=== PATIENT | male | born 1965 | race Caucasian/White ===

== ENCOUNTER → 2017-01-29 | Outpatient (CLI) | payer BC, OTHER | LOC: M SMT 10:54 | PROVIDERS: ATTEND Nurse Practitioner Family | DX: I10 Essential (primary) hypertension (principal) ==

== ENCOUNTER → 2017-02-06 | Outpatient (CLI) | payer BC, OTHER ==
[2017-02-07 14:16] LABS: PSA TOTAL 0.6 ng/mL (0.0-4.0)
== END ==
LOC: M SMT 09:45
PROVIDERS: ATTEND Nurse Practitioner Family
DX: Z12.5 Encounter for screening for malignant neoplasm of prostate (principal)

== ENCOUNTER → 2017-02-12 | Outpatient (CLI) | payer BC, OTHER ==
--- NOTE | 2017-02-15 15:29 | SLEEPCENT ---
DATE OF PROCEDURE: 02/12/2017 REFERRING PHYSICIAN: Shilpa Walton Nocturnal polysomnography was performed for evaluation of sleep apnea syndrome symptoms in this patient with a history of excessive somnolence and nonrestorative sleep. 7 hours and 25 minutes of data were reviewed. There were 371 minutes of sleep identified. Sleep latency was normal at 17 minutes. Rapid eye movement (REM) latency was delayed at 104 minutes. Sleep architecture showed fragmentation and poor progression. There were two REM periods appreciated. The overall sleep efficiency was 84.2%. EKG showed a sinus rhythm with an average heart rate of 62 beats per minute. Some rate variability was seen surrounding respiratory events. Rate ranged 50 to 80 beats per minute. EEG showed normal waveforms for awake and sleep. No focal events identified. There were 119 respiratory events identified of 10 seconds in duration or greater for an apnea/hypopnea index of 19.2. The events were obstructive in nature, not exclusive to sleep stage nor body position. Arousals from respiratory events occurred 10.2 times per hour and oxygen desaturations were seen into the upper 80s. Some limb activity was noted, particularly prominent early in the study, but limb movement arousals occurred only 3.7 times per hour. IMPRESSION: Moderate obstructive sleep apnea syndrome (G47.33). Apnea/hypopnea index 19.2. RECOMMENDATION: The patient should be encouraged to return to the sleep disorder center for pressure therapy. In the interim, alcohol and sedative avoidance should be practiced and caution exercised during the operation of motor vehicles.
== END ==
LOC: M SLEEP 19:52
PROVIDERS: ATTEND Nurse Practitioner Adult Health
DX: G47.33 Obstructive sleep apnea (adult) (pediatric) (principal)

== ENCOUNTER → 2017-02-22 | Outpatient (CLI) | payer BC, OTHER ==
--- NOTE | 2017-02-23 10:13 | SLEEPCENT ---
DATE OF PROCEDURE: 02/22/2017 REQUESTING PROVIDER: Shilpa Walton NP INTERPRETATION: Nocturnal polysomnography was performed for the titration of pressure therapy in this patient with obstructive sleep apnea syndrome, apnea-hypopnea index of 19.2. For testing, a ResMed Quattro full face mask of small size was used, 4 cm of water pressure were applied to the circuit and the lights were extinguished. 8 hours and 57 minutes of data were reviewed. There were 333 minutes of sleep identified. Sleep latency was normal at 12 minutes. Rapid eye movement (REM) latency was delayed at 458 minutes. Sleep architecture was initially fragmented with poor sleep progression. There was a period of wake between 12:30 and 2:30. REM sleep was eventually achieved. Overall sleep efficiency was 63%. Electrocardiogram (EKG) showed a sinus rhythm with an average heart rate of 78 beats per minute. Electroencephalogram (EEG) showed reasonably normal waveforms for wake and sleep. Respiratory events were found best palliated with a CPAP to a pressure of +7, with which pressure the patient slept through REM without respiratory event or oxygen desaturation. Some limb activity was appreciated. There was only one train of 30 events. . Limb movement arousal index was 6.5. IMPRESSION: Obstructive sleep apnea syndrome (G47.33). RECOMMENDATIONS: Nightly use of pressure therapy at 7 cm of water.
== END ==
LOC: M SLEEP 19:36
PROVIDERS: ATTEND Nurse Practitioner Adult Health
DX: G47.33 Obstructive sleep apnea (adult) (pediatric) (principal)

== ENCOUNTER 2017-06-11 11:54 | Outpatient (CLI) | payer BC, OTHER ==
[~2017-06-11] VITALS: Ht 182.9 cm; Wt 112.9 kg
[~2017-06-11 11:54] MED LIST: LISI10TA2 PO
[2017-06-11] MEDS ORDERED: NS 1,000 ML IV ONE (12:15)
[2017-06-11] MEDS ORDERED: PROPOFOL 200 MG/20 ML VIAL As Ordered ONE (12:53)
--- NOTE | 2017-06-11 13:24 | ROOR ---
Patient Name: Boby Bowers Procedure Date: 06/11/2017 1:00 PM Date of : 1965 Age: 51 Room: [facility] Gender: Male Note Status: Finalized Procedure: Total Colonoscopy to cecum + Biopsy Polypectomy Indications: Screening for colorectal malignant neoplasm Providers: Marvel Oates MD Referring MD: Michael Marcelino NP Requesting Provider: Medicines: Monitored Anesthesia Care Complications: No immediate complications. Procedure: Pre-Anesthesia Assessment: - The heart rate, respiratory rate, oxygen saturations, blood pressure, adequacy of pulmonary ventilation, and response to care were monitored throughout the procedure. The Colonoscope was introduced through the anus and advanced to the cecum, identified by appendiceal orifice and ileocecal valve. The colonoscopy was performed without difficulty. The patient tolerated the procedure well. The quality of the bowel preparation was excellent. Findings: The perianal and digital rectal examinations were normal. Non-bleeding internal hemorrhoids were found during retroflexion. The hemorrhoids were small and Grade I (internal hemorrhoids that do not prolapse). A small polyp was found in the rectum. The polyp was sessile. The polyp was removed with a jumbo cold forceps. Resection and retrieval were complete. A small polyp was found at 20 cm proximal to the anus. The polyp was sessile. The polyp was removed with a jumbo cold forceps. Resection and retrieval were complete. The exam was otherwise without abnormality on direct and retroflexion views. Impression: - Non-bleeding internal hemorrhoids. - One small polyp in the rectum, removed with a jumbo cold forceps. Resected and retrieved. - One small polyp at 20 cm proximal to the anus, removed with a jumbo cold forceps. Resected and retrieved. - The examination was otherwise normal on direct and retroflexion views. - The exam was otherwise normal to the cecum. Recommendation: - Patient has a contact number available for emergencies. The signs and symptoms of potential delayed complications were discussed with the patient. Return to normal activities tomorrow. Written discharge instructions were provided to the patient. - High fiber diet. - Discharge patient to home. - Continue present medications. - Await pathology results. - Telephone GI clinic for pathology results in 1 week. - Repeat colonoscopy in 5 years for surveillance. - Return to referring physician. - The findings and recommendations were discussed with the patient's family. Marvel Oates MD Marvel Oates MD 06/11/2017 1:24:39 PM This report has been signed electronically. Number of Addenda: 0 Note Initiated On: 06/11/2017 1:00 PM Estimated Blood Loss: Estimated blood loss: none.
[2017-06-11 13:56] VITALS: BP 109/74
== END 2017-06-11 13:55 | disposition home or self-care (01) ==
LOC: M OPP 11:54
PROVIDERS: ATTEND Internal Medicine Gastroenterology
DX: Z12.11 Encounter for screening for malignant neoplasm of colon (principal); K64.0 First degree hemorrhoids; K62.1 Rectal polyp; K63.5 Polyp of colon; I10 Essential (primary) hypertension; G47.30 Sleep apnea, unspecified; F17.220 Nicotine dependence, chewing tobacco, uncomplicated; Z79.899 Other long term (current) drug therapy

== ENCOUNTER → 2017-12-27 | Outpatient (REF) | payer OTHER ==
[2017-12-27 22:29] LABS: INFLUENZA A AMPLIFICATION NEGATIVE (NEGATIVE); INFLUENZA B AMPLIFICATION NEGATIVE (NEGATIVE)
== END ==
LOC: M LAB REF 09:17
DX: Z11.59 Encounter for screening for other viral diseases (principal)
CPT/HCPCS: 87502

== ENCOUNTER → 2019-01-13 | Outpatient (CLI) | payer BC, OTHER ==
[2019-01-13 13:54] LABS: BASO # 0.1 10^3/uL (0.0-0.2); BASO % 0.9 % (0.0-1.0); EOS # 0.2 10^3/uL (0.0-0.50); EOS % 3.2 % (0.0-3.0); HEMATOCRIT 46.4 % (42.0-52.0); HEMOGLOBIN 15.4 g/dl (13.5-17.5); LYMPH # 1.6 10^3/uL (1.5-4.5); MEAN CORPUSCULAR HEMOGLOBIN 30.2 pg (27.0-33.0); MEAN CORPUSCULAR HGB CONC 33.2 g/dl (32.0-36.5); MONO # 0.5 10^3/uL (0.0-0.8); NEUTROPHILS # 3.5 10^3/uL (1.8-7.7); NEUTROPHILS % 60.2 % (36.0-66.0); PLATELET COUNT, AUTOMATED 164 10^3/uL (150-450); WHITE BLOOD COUNT 5.9 10^3/uL (4.0-10.0)
[2019-01-13 14:26] LABS: ALBUMIN 4.1 GM/DL (3.2-5.2); ALT/SGPT 51 U/L (12-78); BILIRUBIN,TOTAL 0.3 MG/DL (0.2-1.0); BLOOD UREA NITROGEN 14 MG/DL (7-18); CALCIUM LEVEL 9.2 MG/DL (8.5-10.1); CARBON DIOXIDE LEVEL 29 MEQ/L (21-32); CHLORIDE LEVEL 105 MEQ/L (98-107); CHOLESTEROL LEVEL 162 MG/DL (<200); CHOLESTEROL RISK RATIO 3.681 (<5); CREATININE FOR GFR 1.16 MG/DL (0.70-1.30); FREE T4 0.95 NG/DL (0.76-1.46); GLOMERULAR FILTRATION RATE > 60.0 (>56); GLUCOSE, FASTING 99 MG/DL (70-100); HDL CHOLESTEROL 44 MG/DL (>40); LDL CHOLESTEROL 100 MG/DL (<100); NON-HDL-C 118 MG/DL; POTASSIUM SERUM 4.4 MEQ/L (3.5-5.1); SODIUM LEVEL 140 MEQ/L (136-145); TOTAL PROTEIN 7.2 GM/DL (6.4-8.2); TRIGLYCERIDES LEVEL 92 MG/DL (<150)
[2019-01-15 00:07] LABS: PSA TOTAL 0.5 ng/mL (0.0-4.0); TESTOSTERONE FREE (DIRECT) 9.6 pg/mL (7.2-24.0)
== END ==
LOC: M SMT 08:15
PROVIDERS: ATTEND Nurse Practitioner Family
DX: I10 Essential (primary) hypertension (principal); R53.83 Other fatigue; Z12.5 Encounter for screening for malignant neoplasm of prostate; Z13.220 Encounter for screening for lipoid disorders

== ENCOUNTER → 2020-04-13 | Outpatient (CLI) | payer BC, OTHER ==
[~2020-04-13] MED LIST changes: +LISI10TA15 PO; -LISI10TA2 PO
[2020-04-13 10:37] LABS: HEMATOCRIT 48.7 % (42.0-52.0); HEMOGLOBIN 15.8 g/dl (13.5-17.5); MEAN CORPUSCULAR HEMOGLOBIN 30.2 pg (27.0-33.0); MEAN CORPUSCULAR HGB CONC 32.4 g/dl (32.0-36.5); MEAN CORPUSCULAR VOLUME 92.9 fl (80.0-96.0); PLATELET COUNT, AUTOMATED 169 10^3/uL (150-450); RED BLOOD COUNT 5.24 10^6/uL (4.30-6.10)
[2020-04-13 11:02] LABS: ALT/SGPT 78 U/L (12-78); BILIRUBIN,TOTAL 0.6 MG/DL (0.2-1.0); BLOOD UREA NITROGEN 14 MG/DL (7-18); CALCIUM LEVEL 9.3 MG/DL (8.5-10.1); CARBON DIOXIDE LEVEL 29 MEQ/L (21-32); CHLORIDE LEVEL 106 MEQ/L (98-107); CHOLESTEROL LEVEL 162 MG/DL (<200); CHOLESTEROL RISK RATIO 3.951 (<5); CREATININE FOR GFR 1.11 MG/DL (0.70-1.30); GLOMERULAR FILTRATION RATE > 60.0 (>56); GLUCOSE, FASTING 92 MG/DL (70-100); HDL CHOLESTEROL 41 MG/DL (>40); LDL CHOLESTEROL 88 MG/DL (<100); NON-HDL-C 121 MG/DL; POTASSIUM SERUM 4.3 MEQ/L (3.5-5.1); SODIUM LEVEL 140 MEQ/L (136-145); TOTAL PROTEIN 7.2 GM/DL (6.4-8.2); TRIGLYCERIDES LEVEL 167 MG/DL (<150)
== END ==
LOC: M PLALAB 08:52
PROVIDERS: ATTEND Family Medicine
DX: Z12.5 Encounter for screening for malignant neoplasm of prostate (principal); I10 Essential (primary) hypertension
CPT/HCPCS: 36415; 80053; 80061; 85027; G0103

== ENCOUNTER → 2022-07-19 | Outpatient (CLI) | payer BC, OTHER ==
[~2022-07-19] MED LIST changes: -LISI10TA15 PO; +LISI10TA24 PO
[2022-07-19 10:37] LABS: BASO # 0.1 10^3/uL (0.0-0.2); BASO % 0.9 % (0.0-1.0); EOS # 0.2 10^3/uL (0.0-0.5); HEMATOCRIT 47.7 % (42.0-52.0); HEMOGLOBIN 15.8 g/dl (13.5-17.5); LYMPH # 1.3 10^3/uL (1.5-5.0); LYMPH % 23.6 % (24.0-44.0); MEAN CORPUSCULAR HEMOGLOBIN 30.9 pg (27.0-33.0); MEAN CORPUSCULAR HGB CONC 33.1 g/dl (32.0-36.5); MEAN CORPUSCULAR VOLUME 93.3 fl (80.0-96.0); MONO # 0.4 10^3/uL (0.0-0.8); MONO % 7.3 % (2.0-8.0); NEUTROPHILS # 3.6 10^3/uL (1.5-8.5); NEUTROPHILS % 64.8 % (36.0-66.0); PLATELET COUNT, AUTOMATED 175 10^3/uL (150-450); RED BLOOD COUNT 5.11 10^6/uL (4.30-6.10); WHITE BLOOD COUNT 5.6 10^3/uL (4.0-10.0)
[2022-07-19 11:53] LABS: ALBUMIN 4.1 GM/DL (3.2-5.2); ALT/SGPT 42 U/L (12-78); BILIRUBIN,TOTAL 0.7 MG/DL (0.2-1.0); BLOOD UREA NITROGEN 15 MG/DL (7-18); CALCIUM LEVEL 9.6 MG/DL (8.5-10.1); CARBON DIOXIDE LEVEL 28 MEQ/L (21-32); CHLORIDE LEVEL 106 MEQ/L (98-107); CHOLESTEROL LEVEL 168 MG/DL (<200); CHOLESTEROL RISK RATIO 3.428 (<5); CREATININE FOR GFR 1.09 MG/DL (0.70-1.30); GLOMERULAR FILTRATION RATE > 60.0 (>56); GLUCOSE, FASTING 84 MG/DL (70-100); HDL CHOLESTEROL 49 MG/DL (>40); LDL CHOLESTEROL 97 MG/DL (<100); NON-HDL-C 119 MG/DL; POTASSIUM SERUM 4.4 MEQ/L (3.5-5.1); PROSTATIC SPECIFIC AG MONITOR 0.97 NG/ML (< 4.00); SODIUM LEVEL 140 MEQ/L (136-145); TOTAL PROTEIN 7.2 GM/DL (6.4-8.2); TRIGLYCERIDES LEVEL 108 MG/DL (<150)
== END ==
LOC: M PLALAB 08:42
PROVIDERS: ATTEND Family Medicine
DX: Z12.5 Encounter for screening for malignant neoplasm of prostate (principal)

== ENCOUNTER 2022-09-14 21:04 | Emergency (ER) | payer BC, OTHER ==
[~2022-09-14] VITALS: Ht 182.9 cm; Wt 113.2 kg
[2022-09-14 21:37] LABS: BASO % 0.3 % (0.0-1.0); EOS # 0.1 10^3/uL (0.0-0.5); EOS % 0.8 % (0.0-3.0); HEMATOCRIT 46.5 % (42.0-52.0); HEMOGLOBIN 14.9 g/dl (13.5-17.5); LYMPH # 0.9 10^3/uL (1.5-5.0); LYMPH % 13.4 % (24.0-44.0); MEAN CORPUSCULAR HEMOGLOBIN 30.1 pg (27.0-33.0); MEAN CORPUSCULAR VOLUME 93.9 fl (80.0-96.0); MONO # 0.3 10^3/uL (0.0-0.8); MONO % 3.9 % (2.0-8.0); NEUTROPHILS # 5.4 10^3/uL (1.5-8.5); NEUTROPHILS % 81.3 % (36.0-66.0); PLATELET COUNT, AUTOMATED 166 10^3/uL (150-450); RED BLOOD COUNT 4.95 10^6/uL (4.30-6.10); WHITE BLOOD COUNT 6.7 10^3/uL (4.0-10.0)
[2022-09-14] MEDS ORDERED: KETOROLAC 30 MG/ML 1ML VIAL IV ONE (21:40)
[2022-09-14] MEDS ORDERED: ONDANSETRON 4MG 2ML VIAL IV ONE (21:40)
[2022-09-14 22:20] LABS: ALT/SGPT 42 U/L (7.0-40); BILIRUBIN,DIRECT 0.1 MG/DL (<0.4); BILIRUBIN,TOTAL 0.3 MG/DL (0.3-1.2); BLOOD UREA NITROGEN 17 MG/DL (9-23); CALCIUM LEVEL 9.4 MG/DL (8.5-10.1); CARBON DIOXIDE LEVEL 29 MMOL/L (20-31); CHLORIDE LEVEL 102 MMOL/L (98-107); CK-MB VALUE MASS 1.1 NG/ML (<3.6); CPK CREATINE PHOSPHOKINASE 162 U/L (46-171); CREATININE FOR GFR 0.98 MG/DL (0.70-1.30); GLOMERULAR FILTRATION RATE > 60.0 (>56); GLUCOSE, FASTING 147 MG/DL (60-100); LIPASE 43 U/L (12-53); MB/CK RELATIVE INDEX 0.67 (< OR =4); POTASSIUM SERUM 4.4 MMOL/L (3.5-5.1); SODIUM LEVEL 139 MMOL/L (136-145); TOTAL PROTEIN 7.1 G/DL (5.7-8.2)
[2022-09-14] MEDS ORDERED: ISOVUE-370 76% 100ML VIAL As Ordered ONE (22:30)
[2022-09-14] MEDS ORDERED: ONDA4TAB6 PO (23:31)
[2022-09-14] MEDS ORDERED: KETO10TAB PO (23:33)
[2022-09-14 23:55] VITALS: BP 118/76
== END 2022-09-14 23:57 | disposition home or self-care (01) ==
LOC: M ED 21:04
DX: K80.20 Calculus of gallbladder without cholecystitis without obstruction (principal); I10 Essential (primary) hypertension; Z79.899 Other long term (current) drug therapy
CPT/HCPCS: 71045; 74177; 80048; 80076; 82550; 82553; 83690; 84484; 85025; 93005; 93041; 94760; 96374; 96375; 99284; J1885; J2405

== ENCOUNTER 2023-09-03 02:27 | Emergency (ER) | payer BC, OTHER ==
[~2023-09-03] VITALS: Ht 182.9 cm; Wt 111.4 kg
[~2023-09-03 02:27] MED LIST changes: -ADVI200C8 PO; -CIPR-249 PO; -METR-265 PO; -MULT-6 PO
[2023-09-03 02:28] VITALS: BP 160/94; TEMP 97; O2SAT 98
[2023-09-04] MEDS ORDERED: ADVI200C8 PO (12:04)
[2023-09-04] MEDS ORDERED: ONDA4TAB6 PO (20:20)
[2023-09-04] MEDS ORDERED: METR-265 PO (20:20)
[2023-09-04] MEDS ORDERED: CIPR-249 PO (20:20)
== END 2023-09-03 06:20 | disposition left against medical advice (07) ==
LOC: M ED 02:27
DX: Z53.21 Procedure and treatment not carried out due to patient leaving prior to being seen by health care provider (principal)

== ENCOUNTER → 2023-09-03 | Outpatient (REF) | payer BC, OTHER ==
[~2023-09-03] MED LIST changes: +ADVI200C8 PO; +CIPR-249 PO; +KETO10TAB PO; +METR-265 PO; +MULT-6 PO; +ONDA4TAB6 PO
[2023-09-03 18:45] LABS: BASO % 0.1 % (0.0-1.0); EOS % 0.1 % (0.0-3.0); HEMATOCRIT 50.9 % (42.0-52.0); HEMOGLOBIN 17.1 g/dl (13.5-17.5); LYMPH % 6.1 % (24.0-44.0); MEAN CORPUSCULAR HEMOGLOBIN 30.4 pg (27.0-33.0); MEAN CORPUSCULAR HGB CONC 33.6 g/dl (32.0-36.5); MEAN CORPUSCULAR VOLUME 90.6 fl (80.0-96.0); MONO # 0.9 10^3/uL (0.0-0.8); MONO % 5.1 % (2.0-8.0); NEUTROPHILS # 15.2 10^3/uL (1.5-8.5); NEUTROPHILS % 88.2 % (36.0-66.0); PLATELET COUNT, AUTOMATED 232 10^3/uL (150-450); RED BLOOD COUNT 5.62 10^6/uL (4.30-6.10); WHITE BLOOD COUNT 17.2 10^3/uL (4.0-10.0)
[2023-09-03 19:13] LABS: ALBUMIN 4.3 G/DL (3.2-5.2); ALKALINE PHOSPHATASE 77 U/L (46-116); ALT/SGPT 56 U/L (7.0-40); AST/SGOT 29 U/L (<34); BILIRUBIN,DIRECT 0.4 MG/DL (<0.4); BILIRUBIN,TOTAL 1.2 MG/DL (0.3-1.2); BLOOD UREA NITROGEN 17 MG/DL (9-23); CALCIUM LEVEL 9.7 MG/DL (8.5-10.1); CARBON DIOXIDE LEVEL 23 MMOL/L (20-31); CHLORIDE LEVEL 100 MMOL/L (98-107); CREATININE FOR GFR 1.05 MG/DL (0.70-1.30); GLOMERULAR FILTRATION RATE > 60.0 (>56); GLUCOSE, FASTING 141 MG/DL (60-100); POTASSIUM SERUM 3.9 MMOL/L (3.5-5.1); SODIUM LEVEL 136 MMOL/L (136-145); TOTAL PROTEIN 7.6 G/DL (5.7-8.2)
== END ==
LOC: M LAB REF 17:35
PROVIDERS: ATTEND Internal Medicine Pulmonary Disease
DX: R07.89 Other chest pain (principal)

== ENCOUNTER 2023-09-04 11:56 | Emergency (ER) | payer BC, OTHER ==
[~2023-09-04] VITALS: Ht 182.9 cm; Wt 158.0 kg
[2023-09-04] MEDS ORDERED: ADVI200C8 PO (12:04)
[2023-09-04 12:54] LABS: BASO % 0.2 % (0.0-1.0); HEMATOCRIT 46.8 % (42.0-52.0); LYMPH # 0.5 10^3/uL (1.5-5.0); LYMPH % 2.9 % (24.0-44.0); MEAN CORPUSCULAR HEMOGLOBIN 30.7 pg (27.0-33.0); MEAN CORPUSCULAR HGB CONC 34.2 g/dl (32.0-36.5); MEAN CORPUSCULAR VOLUME 89.7 fl (80.0-96.0); MONO # 0.6 10^3/uL (0.0-0.8); MONO % 3.3 % (2.0-8.0); NEUTROPHILS # 15.9 10^3/uL (1.5-8.5); NEUTROPHILS % 93.1 % (36.0-66.0); PLATELET COUNT, AUTOMATED 172 10^3/uL (150-450); RED BLOOD COUNT 5.22 10^6/uL (4.30-6.10)
[2023-09-04] MEDS ORDERED: ACETAMINOPHEN 500 MG TAB PO ONE (13:05)
[2023-09-04 13:20] LABS: CK-MB VALUE MASS < 1.0 NG/ML (<3.6); LIPASE 23 U/L (12-53)
[2023-09-04 13:23] LABS: CPK CREATINE PHOSPHOKINASE 145 U/L (46-171); MB/CK RELATIVE INDEX 0.68 (< OR =4)
[2023-09-04 13:27] LABS: ALBUMIN 3.8 G/DL (3.2-5.2); ALKALINE PHOSPHATASE 74 U/L (46-116); ALT/SGPT 70 U/L (7.0-40); AST/SGOT 45 U/L (<34); BILIRUBIN,DIRECT 1.2 MG/DL (<0.4); BILIRUBIN,TOTAL 2.6 MG/DL (0.3-1.2); BLOOD UREA NITROGEN 16 MG/DL (9-23); CALCIUM LEVEL 9.1 MG/DL (8.5-10.1); CARBON DIOXIDE LEVEL 22 MMOL/L (20-31); CHLORIDE LEVEL 100 MMOL/L (98-107); CREATININE FOR GFR 1.13 MG/DL (0.70-1.30); GLOMERULAR FILTRATION RATE > 60.0 (>56); GLUCOSE, FASTING 154 MG/DL (60-100); POTASSIUM SERUM 3.7 MMOL/L (3.5-5.1); SODIUM LEVEL 135 MMOL/L (136-145); TOTAL PROTEIN 7.2 G/DL (5.7-8.2)
[2023-09-04 13:43] LABS: INR 1.52; PROTHROMBIN TIME 17.8 SECONDS (12.5-14.5)
[2023-09-04 13:44] LABS: PARTIAL THROMBOPLASTIN TIME 32.7 SECONDS (24.8-34.2)
[2023-09-04] MEDS ORDERED: NS 1,000 ML IV ONE (14:10)
[2023-09-04] MEDS ORDERED: ONDANSETRON 4MG 2ML VIAL IV ONE (14:50)
[2023-09-04] MEDS ORDERED: NS IV ONE (14:50)
[2023-09-04] MEDS ORDERED: ISOVUE-370 76% 100ML VIAL As Ordered ONE (15:12)
[2023-09-04] MEDS ORDERED: PANTOPRAZOLE 40MG VIAL IV ONE (17:15)
[2023-09-04] MEDS ORDERED: PIPERACILLIN/TAZOBACTAM SOD 3.375 GM in D5W MINI-BAG PLUS 50 ML IV ONE (17:30)
[2023-09-04] MEDS ORDERED: ONDA4TAB6 PO (20:20)
[2023-09-04] MEDS ORDERED: METR-265 PO (20:20)
[2023-09-04] MEDS ORDERED: CIPR-249 PO (20:20)
[2023-09-04 20:31] VITALS: BP 154/82; TEMP 96.9; O2SAT 99
[2023-09-05] MEDS ORDERED: MULT-6 PO (14:38)
== END 2023-09-04 20:34 | disposition home or self-care (01) ==
LOC: M ED 11:56
DX: K80.20 Calculus of gallbladder without cholecystitis without obstruction (principal); R50.9 Fever, unspecified; R11.2 Nausea with vomiting, unspecified; I10 Essential (primary) hypertension; Z90.89 Acquired absence of other organs
CPT/HCPCS: 36415; 71045; 74177; 74181; 76705; 80047; 80048; 80076; 82550; 82553; 83605; 83690; 84484; 85025; 85610; 85730; 87040; 87077; 87186; 87486; 87581; 87633; 87798; 93005; 93041; 96361; 96365; 96366; 96375; 99285; C9113; J2405; J2543; Q9967

== ENCOUNTER 2023-09-05 00:51 | Inpatient (IN) | payer BC, OTHER ==
[2023-09-03] MEDS: KETOROLAC 30 MG/ML 1ML VIAL IV ONE (13:45)
[2023-09-05] VITALS (103 sets, daily range): BP systolic 68–173; BP diastolic 40–134; TEMP 97.9–108; O2SAT 85–100
[~2023-09-05] VITALS: Ht 182.9 cm; Wt 120.2 kg
[~2023-09-05 00:51] MED LIST changes: +ADVI200C8 PO; +CIPR-249 PO; +METR-265 PO
[2023-09-05] MEDS ORDERED: NS 1,000 ML IV ONE (01:00)
[2023-09-05] MEDS ORDERED: PIPERACILLIN/TAZOBACTAM SOD 4.5 GM in D5W MINI-BAG PLUS 50 ML IV ONE (01:00)
[2023-09-05] MEDS ORDERED: NS 2,520 ML in IV 1 EA IV ONE (01:05)
[2023-09-05] MEDS ORDERED: ACETAMINOPHEN TAB 650MG DOSE (2X325MG) PO ONE (01:15)
[2023-09-05 01:22] LABS: VENOUS BASE EXCESS -3.7 (-2.0-2.0); VENOUS HCO3 18.8 MMOL/L (23.0-27.0); VENOUS O2 SATURATION 80.8 % (60.0-80.0); VENOUS PARTIAL PRESSURE O2 40.6 mmHg (30.0-50.0); VENOUS PH 7.444 UNITS (7.330-7.430); VENOUS STANDARD HCO3 21.1 MMOL/L; VENOUS TOTAL CO2 19.6 MMOL/L (24.0-28.0)
[2023-09-05 01:29] LABS: BASO % 0.2 % (0.0-1.0); HEMATOCRIT 44.5 % (42.0-52.0); LYMPH # 0.2 10^3/uL (1.5-5.0); LYMPH % 2.7 % (24.0-44.0); MEAN CORPUSCULAR HEMOGLOBIN 30.5 pg (27.0-33.0); MEAN CORPUSCULAR HGB CONC 33.9 g/dl (32.0-36.5); MEAN CORPUSCULAR VOLUME 89.9 fl (80.0-96.0); MONO # 0.1 10^3/uL (0.0-0.8); MONO % 1.1 % (2.0-8.0); NEUTROPHILS # 7.7 10^3/uL (1.5-8.5); NEUTROPHILS % 95.4 % (36.0-66.0); PLATELET COUNT, AUTOMATED 130 10^3/uL (150-450); RED BLOOD COUNT 4.95 10^6/uL (4.30-6.10); WHITE BLOOD COUNT 8.1 10^3/uL (4.0-10.0)
[2023-09-05 01:50] LABS: LIPASE 25 U/L (12-53)
[2023-09-05 01:52] LABS: CPK CREATINE PHOSPHOKINASE 165 U/L (46-171)
[2023-09-05 02:39] LABS: ALBUMIN 3.4 G/DL (3.2-5.2); ALKALINE PHOSPHATASE 80 U/L (46-116); ALT/SGPT 85 U/L (7.0-40); AST/SGOT 61 U/L (<34); BILIRUBIN,DIRECT 1.1 MG/DL (<0.4); BILIRUBIN,TOTAL 2.3 MG/DL (0.3-1.2); BLOOD UREA NITROGEN 18 MG/DL (9-23); CALCIUM LEVEL 8.7 MG/DL (8.5-10.1); CARBON DIOXIDE LEVEL 19 MMOL/L (20-31); CHLORIDE LEVEL 105 MMOL/L (98-107); CK-MB VALUE MASS < 1.0 NG/ML (<3.6); CREATININE FOR GFR 1.39 MG/DL (0.70-1.30); GLOMERULAR FILTRATION RATE 55.7 (>56); GLUCOSE, FASTING 148 MG/DL (60-100); POTASSIUM SERUM 3.6 MMOL/L (3.5-5.1); SODIUM LEVEL 137 MMOL/L (136-145); TOTAL PROTEIN 6.6 G/DL (5.7-8.2)
[2023-09-05 03:01] LABS: CK-MB VALUE MASS < 1.0 NG/ML (<3.6)
[2023-09-05 03:02] LABS: CPK CREATINE PHOSPHOKINASE 179 U/L (46-171); MB/CK RELATIVE INDEX 0.55 (< OR =4)
[2023-09-05 03:17] LABS: PROCALCITONIN 5.54 ng/ml
[2023-09-05] MEDS ORDERED: ONDANSETRON 4MG 2ML VIAL IV PRN (05:30)
[2023-09-05] MEDS ORDERED: HYDROMORPHONE HCL 0.5 MG/ 0.5 ML SYRINGE IV PRN ×2 (05:30)
[2023-09-05] MEDS ORDERED: LR 1,000 ML IV SCH ×2 (05:30→14:20)
[2023-09-05] MEDS ORDERED: PIPERACILLIN/TAZOBACTAM SOD 4.5 GM in D5W MINI-BAG PLUS 50 ML IV SCH (06:00)
[2023-09-05 06:37] LABS: BASO % 0.1 % (0.0-1.0); HEMATOCRIT 38.6 % (42.0-52.0); LYMPH # 0.4 10^3/uL (1.5-5.0); LYMPH % 2.9 % (24.0-44.0); MEAN CORPUSCULAR HEMOGLOBIN 31.4 pg (27.0-33.0); MEAN CORPUSCULAR HGB CONC 33.9 g/dl (32.0-36.5); MEAN CORPUSCULAR VOLUME 92.6 fl (80.0-96.0); MONO # 0.4 10^3/uL (0.0-0.8); MONO % 3.5 % (2.0-8.0); NEUTROPHILS # 11.3 10^3/uL (1.5-8.5); NEUTROPHILS % 92.4 % (36.0-66.0); PLATELET COUNT, AUTOMATED 102 10^3/uL (150-450); RED BLOOD COUNT 4.17 10^6/uL (4.30-6.10); WHITE BLOOD COUNT 12.2 10^3/uL (4.0-10.0)
[2023-09-05 06:38] LABS: HEMOGLOBIN 13.1 g/dl (13.5-17.5)
[2023-09-05 06:40] LABS: ALBUMIN 2.7 G/DL (3.2-5.2); BILIRUBIN,TOTAL 1.7 MG/DL (0.3-1.2); CALCIUM LEVEL 7.8 MG/DL (8.5-10.1); CREATININE FOR GFR 1.43 MG/DL (0.70-1.30); GLOMERULAR FILTRATION RATE 53.9 (>56); POTASSIUM SERUM 3.6 MMOL/L (3.5-5.1); TOTAL PROTEIN 5.3 G/DL (5.7-8.2)
[2023-09-05 07:05] LABS: INR 1.69; PROTHROMBIN TIME 19.3 SECONDS (12.5-14.5)
[2023-09-05 07:06] LABS: PARTIAL THROMBOPLASTIN TIME 34.7 SECONDS (24.8-34.2)
[2023-09-05 07:15] LABS: D-DIMER QUANT 3.53 ug/mL (<0.5)
[2023-09-05] MEDS ORDERED: MAG SULF 1GM/100ML (MAG RUN) 1 GM in IV 1 EA IV ONE ×3 (07:20→16:20)
[2023-09-05] MEDS: PIPERACILLIN/TAZOBACTAM SOD 4.5 GM in D5W MINI-BAG PLUS 50 ML IV SCH ×2 (07:52→14:00)
[2023-09-05] MEDS: PANTOPRAZOLE 40MG VIAL IV SCH (07:52)
[2023-09-05] MEDS: LR 1,000 ML IV SCH ×2 (08:31→10:08)
[2023-09-05 09:17] LABS: MAGNESIUM LEVEL 1.7 MG/DL (1.8-2.4)
[2023-09-05] MEDS ORDERED: IPRATROPIUM 0.5MG/ALBUTEROL 2.5MG INH SOL UD 3ML (DUONEB) NEB ONE (10:30)
[2023-09-05] MEDS ORDERED: MED REC CURRENTLY UNOBTAINABLE XX SCH (11:10)
[2023-09-05 11:25] LABS: MB/CK RELATIVE INDEX 0.53 (< OR =4)
[2023-09-05] MEDS ORDERED: ACETAMINOPHEN 500 MG TAB PO ONE (11:30)
[2023-09-05] MEDS ORDERED: ENOXAPARIN 40MG/0.4ML SYRINGE (J1650 PER 10MG) SC SCH (12:15)
[2023-09-05] MEDS ORDERED: MORPHINE 2 MG/ML 1ML VIAL IV ONE (12:40)
[2023-09-05] MEDS ORDERED: CIPROFLOXACIN 400 MG in IV 1 EA IV ONE (12:50)
[2023-09-05] MEDS ORDERED: MORPHINE 2 MG/ML 1ML VIAL As Ordered ONE (12:50)
[2023-09-05] MEDS ORDERED: metroNIDAZOLE 500 MG in IV 1 EA IV ONE (12:50)
[2023-09-05] MEDS ORDERED: LR 1,000 ML IV ONE ×2 (12:50→16:05)
[2023-09-05] MEDS ORDERED: dexmedeTOMIDine (4MCG/ML)200MCG/50ML BTL (PRECEDEX) As Ordered ONE (12:52)
[2023-09-05] MEDS ORDERED: LORazepam 2 MG/ML 1ML VIAL IV STA (12:53)
[2023-09-05] MEDS ORDERED: LORazepam 2 MG/ML 1ML VIAL As Ordered ONE (12:54)
[2023-09-05] MEDS ORDERED: dexmedeTOMidine 200 MCG in IV 1 EA IV SCH (12:55)
[2023-09-05] MEDS ORDERED: diphenhydrAMINE 50MG/ML VIAL IV STA (12:56)
[2023-09-05] MEDS ORDERED: ACETAMINOPHEN *IV* 1,000 MG in IV 1 EA IV ONE (13:00)
[2023-09-05] MEDS ORDERED: ASPIRIN 81MG CHEW TABLET PO ONE (13:10)
[2023-09-05] MEDS ORDERED: BUDESONIDE 0.5 MG/2 ML INHALATION SUSPENSION INH ONE (13:10)
[2023-09-05] MEDS ORDERED: KETOROLAC 30 MG/ML 1ML VIAL IV STA (13:26)
[2023-09-05] MEDS ORDERED: KETOROLAC 30 MG/ML 1ML VIAL As Ordered ONE (13:27)
[2023-09-05] MEDS: KETOROLAC 30 MG/ML 1ML VIAL IV ONE (13:30)
[2023-09-05] MEDS ORDERED: NOREPINEPHRINE 4MG IN D5 250ML 4 MG in IV 1 EA IV STA ×2 (13:39)
[2023-09-05] MEDS ORDERED: HYDROCORTISONE 100MG/2ML VIAL IV STA (13:39)
[2023-09-05] MEDS ORDERED: HYDROCORTISONE 100MG/2ML VIAL As Ordered ONE ×2 (13:39→13:43)
[2023-09-05] MEDS ORDERED: LIDOCAINE 1% MDV 20ML VIAL As Ordered ONE (14:24)
[2023-09-05] MEDS ORDERED: MULT-6 PO (14:38)
[2023-09-05] MEDS ORDERED: HOME MED LIST COMPLETE! XX SCH (14:40)
[2023-09-05 15:22] LABS: ABG BASE EXCESS -6.9 (-2.0-2.0); ABG HCO3 18.4 MMOL/L (22.0-26.0); ABG O2 SATURATION 95.7 % (95.0-99.0); ABG PARTIAL PRESSURE CO2 36.3 mmHg (35.0-45.0); ABG PARTIAL PRESSURE O2 80.9 mmHg (75.0-100.0); ABG STANDARD HCO3 18.9 MMOL/L. (22.0-26.0); ABG TOTAL CO2 19.5 MMOL/L (22.0-29.0); ABG pH (ARTERIAL) 7.323 UNITS (7.350-7.450)
[2023-09-05 15:45] LABS: HEMATOCRIT 38.6 % (42.0-52.0); HEMOGLOBIN 12.8 g/dl (13.5-17.5); MEAN CORPUSCULAR HEMOGLOBIN 30.8 pg (27.0-33.0); MEAN CORPUSCULAR HGB CONC 33.2 g/dl (32.0-36.5); RED BLOOD COUNT 4.15 10^6/uL (4.30-6.10); WHITE BLOOD COUNT 9.8 10^3/uL (4.0-10.0)
[2023-09-05 15:58] LABS: INR 1.77
[2023-09-05] MEDS ORDERED: ACETAMINOPHEN TAB 650MG DOSE (2X325MG) PO PRN (16:00)
[2023-09-05 16:02] LABS: PLATELET COUNT, AUTOMATED 91 10^3/uL (150-450)
[2023-09-05 16:05] LABS: LYMPHOCYTES 4 % (16-44); METAMYELOCYTES 1 % (0-0); MONOCYTES 2 % (0-5); NEUTROPHILS 79 % (28-66)
[2023-09-05 16:07] LABS: ALBUMIN 2.5 G/DL (3.2-5.2); BILIRUBIN,TOTAL 1.4 MG/DL (0.3-1.2); CALCIUM LEVEL 7.9 MG/DL (8.5-10.1); CK-MB VALUE MASS 1.9 NG/ML (<3.6); CREATININE FOR GFR 1.42 MG/DL (0.70-1.30); GLOMERULAR FILTRATION RATE 54.3 (>56); MAGNESIUM LEVEL 1.7 MG/DL (1.8-2.4); MB/CK RELATIVE INDEX 0.34 (< OR =4); PHOSPHORUS LEVEL 0.7 MG/DL (2.5-4.9); PLATELET ESTIMATE DECREASED (NORMAL); POTASSIUM SERUM 3.2 MMOL/L (3.5-5.1); TOTAL PROTEIN 5.1 G/DL (5.7-8.2); TOXIC VACUOLATION 1+
[2023-09-05] MEDS ORDERED: CALCIUM CHLORIDE 10% 1 GM/10 ML SYR IV STA (16:17)
[2023-09-05] MEDS: VASOPRESSIN INJ 20 UNITS in NS 499 ML IV SCH (16:52)
[2023-09-05] MEDS ORDERED: NOREPINEPHRINE 4MG IN D5 250ML 4 MG in IV 1 EA IV SCH ×2 (17:10)
[2023-09-05] MEDS ORDERED: KCL 20MEQ IN 100ML SWI (KRUN) 20 MEQ in IV 1 EA IV ONE ×4 (17:30→18:30)
[2023-09-05] MEDS ORDERED: SODIUM PHOSPHATE INJ 30 MMOL in D5W 500 ML IV ONE (18:00)
[2023-09-05 20:51] LABS: HEMATOCRIT 35.7 % (42.0-52.0); HEMOGLOBIN 12.1 g/dl (13.5-17.5); MEAN CORPUSCULAR HEMOGLOBIN 31.7 pg (27.0-33.0); MEAN CORPUSCULAR HGB CONC 33.9 g/dl (32.0-36.5); MEAN CORPUSCULAR VOLUME 93.5 fl (80.0-96.0); RED BLOOD COUNT 3.82 10^6/uL (4.30-6.10); WHITE BLOOD COUNT 18.9 10^3/uL (4.0-10.0)
[2023-09-05 20:54] LABS: PLATELET COUNT, AUTOMATED 68 10^3/uL (150-450)
[2023-09-05] MEDS: NS 1,000 ML IV SCH (20:57)
[2023-09-05] MEDS: HYDROCORTISONE 100MG/2ML VIAL IV SCH (20:57)
[2023-09-05] MEDS: ENOXAPARIN 30MG/0.3ML SYRINGE (J1650 PER 10MG) SC SCH (20:59)
[2023-09-05 21:07] LABS: CK-MB VALUE MASS 2.8 NG/ML (<3.6)
[2023-09-05 21:09] LABS: CPK CREATINE PHOSPHOKINASE 626 U/L (46-171); MB/CK RELATIVE INDEX 0.44 (< OR =4)
[2023-09-05 21:12] LABS: ALBUMIN 2.4 G/DL (3.2-5.2); ALKALINE PHOSPHATASE 79 U/L (46-116); ALT/SGPT 124 U/L (7.0-40); AST/SGOT 106 U/L (<34); BILIRUBIN,TOTAL 1.8 MG/DL (0.3-1.2); BLOOD UREA NITROGEN 20 MG/DL (9-23); CALCIUM LEVEL 8.1 MG/DL (8.5-10.1); CARBON DIOXIDE LEVEL 19 MMOL/L (20-31); CHLORIDE LEVEL 108 MMOL/L (98-107); GLOMERULAR FILTRATION RATE > 60.0 (>56); GLUCOSE, FASTING 232 MG/DL (60-100); PHOSPHORUS LEVEL 3.6 MG/DL (2.5-4.9); POTASSIUM SERUM 4.1 MMOL/L (3.5-5.1); SODIUM LEVEL 138 MMOL/L (136-145); TOTAL PROTEIN 4.8 G/DL (5.7-8.2)
[2023-09-05 21:26] LABS: LYMPHOCYTES 2 % (16-44); METAMYELOCYTES 2 % (0-0); MONOCYTES 2 % (0-5); NEUTROPHILS 62 % (28-66); PLATELET ESTIMATE DECREASED (NORMAL)
[2023-09-06] VITALS (34 sets, daily range): BP systolic 99–136; BP diastolic 59–87; TEMP 97.6–98.6; O2SAT 96–100
[2023-09-06] MEDS: VASOPRESSIN INJ 20 UNITS in NS 499 ML IV SCH (01:01)
[2023-09-06] MEDS: CIPROFLOXACIN 400 MG in IV 1 EA IV SCH ×2 (01:05→13:57)
[2023-09-06] MEDS: HYDROCORTISONE 100MG/2ML VIAL IV SCH (04:54)
[2023-09-06] MEDS: NS 1,000 ML IV SCH (04:54)
[2023-09-06 05:33] LABS: HEMATOCRIT 32.8 % (42.0-52.0); HEMOGLOBIN 10.9 g/dl (13.5-17.5); MEAN CORPUSCULAR HGB CONC 33.2 g/dl (32.0-36.5); MEAN CORPUSCULAR VOLUME 93.2 fl (80.0-96.0); RED BLOOD COUNT 3.52 10^6/uL (4.30-6.10); WHITE BLOOD COUNT 12.4 10^3/uL (4.0-10.0)
[2023-09-06 05:37] LABS: PLATELET COUNT, AUTOMATED 54 10^3/uL (150-450)
[2023-09-06 05:42] LABS: ALBUMIN 2.3 G/DL (3.2-5.2); ALKALINE PHOSPHATASE 68 U/L (46-116); ALT/SGPT 178 U/L (7.0-40); AST/SGOT 147 U/L (<34); BILIRUBIN,TOTAL 1.2 MG/DL (0.3-1.2); BLOOD UREA NITROGEN 22 MG/DL (9-23); CALCIUM LEVEL 7.7 MG/DL (8.5-10.1); CARBON DIOXIDE LEVEL 21 MMOL/L (20-31); CHLORIDE LEVEL 108 MMOL/L (98-107); CREATININE FOR GFR 1.18 MG/DL (0.70-1.30); GLOMERULAR FILTRATION RATE > 60.0 (>56); GLUCOSE, FASTING 168 MG/DL (60-100); POTASSIUM SERUM 4.5 MMOL/L (3.5-5.1); SODIUM LEVEL 137 MMOL/L (136-145); TOTAL PROTEIN 4.7 G/DL (5.7-8.2)
[2023-09-06 05:58] LABS: ABG BASE EXCESS -5.1 (-2.0-2.0); ABG HCO3 18.5 MMOL/L (22.0-26.0); ABG O2 SATURATION 98.1 % (95.0-99.0); ABG PARTIAL PRESSURE CO2 29.8 mmHg (35.0-45.0); ABG PARTIAL PRESSURE O2 115.2 mmHg (75.0-100.0); ABG STANDARD HCO3 20.3 MMOL/L. (22.0-26.0); ABG TOTAL CO2 19.4 MMOL/L (22.0-29.0)
[2023-09-06 06:04] LABS: BASOPHILS 1 % (0-1); LYMPHOCYTES 7 % (16-44); MONOCYTES 1 % (0-5); NEUTROPHILS 64 % (28-66); PLATELET ESTIMATE MARKED DECREASE (NORMAL)
[2023-09-06 06:05] LABS: POLYCHROMASIA 1+
[2023-09-06] MEDS: PANTOPRAZOLE 40MG VIAL IV SCH (08:13)
[2023-09-06] MEDS: metroNIDAZOLE 500 MG in IV 1 EA IV SCH ×4 (08:14→16:25)
[2023-09-06 08:44] LABS: HEMOGLOBIN 15.1 g/dl (13.5-17.5)
[2023-09-06] MEDS: IPRATROPIUM 0.5MG/ALBUTEROL 2.5MG INH SOL UD 3ML (DUONEB) NEB PRN (11:53)
[2023-09-06] MEDS ORDERED: IBUPROFEN 400MG TAB PO PRN (15:55)
[2023-09-06] MEDS: ENOXAPARIN 30MG/0.3ML SYRINGE (J1650 PER 10MG) SC SCH (20:12)
[2023-09-07] VITALS: BP 143/80; TEMP 96.8; O2SAT 96
[2023-09-07] MEDS: metroNIDAZOLE 500 MG in IV 1 EA IV SCH ×2 (00:27→07:28)
[2023-09-07] MEDS: CIPROFLOXACIN 400 MG in IV 1 EA IV SCH (01:49)
[2023-09-07 04:00] VITALS: BP 128/70; TEMP 96.5; O2SAT 97
[2023-09-07 05:33] LABS: HEMATOCRIT 32.4 % (42.0-52.0); HEMOGLOBIN 10.9 g/dl (13.5-17.5); MEAN CORPUSCULAR HEMOGLOBIN 31.1 pg (27.0-33.0); MEAN CORPUSCULAR HGB CONC 33.6 g/dl (32.0-36.5); MEAN CORPUSCULAR VOLUME 92.3 fl (80.0-96.0); RED BLOOD COUNT 3.51 10^6/uL (4.30-6.10); WHITE BLOOD COUNT 10.2 10^3/uL (4.0-10.0)
[2023-09-07 05:34] LABS: PLATELET COUNT, AUTOMATED 67 10^3/uL (150-450)
[2023-09-07] MEDS ORDERED: CIPROFLOXACIN 500MG TABLET PO SCH (06:00)
[2023-09-07] MEDS ORDERED: LevoFLOXacin 750 MG TABLET PO SCH ×2 (06:00→18:00)
[2023-09-07 06:03] LABS: ALBUMIN 2.2 G/DL (3.2-5.2); ALKALINE PHOSPHATASE 71 U/L (46-116); ALT/SGPT 157 U/L (7.0-40); AST/SGOT 98 U/L (<34); BILIRUBIN,TOTAL 0.7 MG/DL (0.3-1.2); BLOOD UREA NITROGEN 16 MG/DL (9-23); CALCIUM LEVEL 7.6 MG/DL (8.5-10.1); CARBON DIOXIDE LEVEL 25 MMOL/L (20-31); CHLORIDE LEVEL 111 MMOL/L (98-107); CREATININE FOR GFR 1.08 MG/DL (0.70-1.30); GLOMERULAR FILTRATION RATE > 60.0 (>56); GLUCOSE, FASTING 94 MG/DL (60-100); POTASSIUM SERUM 3.5 MMOL/L (3.5-5.1); SODIUM LEVEL 142 MMOL/L (136-145); TOTAL PROTEIN 4.6 G/DL (5.7-8.2)
[2023-09-07 08:00] VITALS: BP 134/77; TEMP 99; O2SAT 96
[2023-09-07] MEDS ORDERED: PERC5TAB12 PO (09:11)
[2023-09-07] MEDS ORDERED: BACI1CAP PO (09:11)
[2023-09-07] MEDS ORDERED: LEVO1TAB40 PO (09:11)
[2023-09-07 12:00] VITALS: BP 134/89; TEMP 98.6; O2SAT 98
[2023-09-07] MEDS: metroNIDAZOLE (FLAGYL) 500MG TABLET PO SCH ×2 (14:03→21:04)
[2023-09-07] MEDS ORDERED: METR-265 PO (14:19)
[2023-09-07 17:29] LABS: C REACTIVE PROTEIN QUANTITATIV 8.9 MG/DL (<1.0)
[2023-09-07 17:40] VITALS: BP 153/89; TEMP 98.1; O2SAT 97
[2023-09-07 17:43] LABS: PROCALCITONIN 33.4 ng/ml
[2023-09-07 20:00] VITALS: BP 150/75; TEMP 99; O2SAT 96
[2023-09-07] MEDS ORDERED: rOPINIRole 0.25 MG TAB(REQUIP) PO ONE ×2 (20:25→21:00)
[2023-09-07] MEDS: IPRATROPIUM 0.5MG/ALBUTEROL 2.5MG INH SOL UD 3ML (DUONEB) NEB PRN (20:27)
[2023-09-07] MEDS ORDERED: LINEZOLID 600MG TABLET (ZYVOX) PO SCH (21:00)
[2023-09-07] MEDS ORDERED: ENOXAPARIN 40MG/0.4ML SYRINGE (J1650 PER 10MG) SC SCH (21:00)
[2023-09-08 03:41] VITALS: BP 119/64; TEMP 98; O2SAT 93
[2023-09-08 04:59] LABS: HEMATOCRIT 34.4 % (42.0-52.0); HEMOGLOBIN 11.5 g/dl (13.5-17.5); MEAN CORPUSCULAR HEMOGLOBIN 30.7 pg (27.0-33.0); MEAN CORPUSCULAR HGB CONC 33.4 g/dl (32.0-36.5); MEAN CORPUSCULAR VOLUME 91.7 fl (80.0-96.0); RED BLOOD COUNT 3.75 10^6/uL (4.30-6.10); WHITE BLOOD COUNT 7.5 10^3/uL (4.0-10.0)
[2023-09-08 05:06] LABS: PLATELET COUNT, AUTOMATED 85 10^3/uL (150-450)
[2023-09-08] MEDS: metroNIDAZOLE (FLAGYL) 500MG TABLET PO SCH (05:07)
[2023-09-08 05:16] LABS: ALBUMIN 2.4 G/DL (3.2-5.2); ALKALINE PHOSPHATASE 80 U/L (46-116); ALT/SGPT 110 U/L (7.0-40); AST/SGOT 51 U/L (<34); BILIRUBIN,TOTAL 0.7 MG/DL (0.3-1.2); BLOOD UREA NITROGEN 15 MG/DL (9-23); CALCIUM LEVEL 7.8 MG/DL (8.5-10.1); CARBON DIOXIDE LEVEL 25 MMOL/L (20-31); CHLORIDE LEVEL 107 MMOL/L (98-107); CREATININE FOR GFR 1.11 MG/DL (0.70-1.30); GLOMERULAR FILTRATION RATE > 60.0 (>56); GLUCOSE, FASTING 90 MG/DL (60-100); SODIUM LEVEL 140 MMOL/L (136-145); TOTAL PROTEIN 4.8 G/DL (5.7-8.2)
[2023-09-08] MEDS: IPRATROPIUM 0.5MG/ALBUTEROL 2.5MG INH SOL UD 3ML (DUONEB) NEB PRN (05:34)
[2023-09-08] MEDS ORDERED: LevoFLOXacin 750 MG TABLET PO SCH (06:00)
[2023-09-08] MEDS ORDERED: LEVO1TAB40 PO (07:30)
[2023-09-08] MEDS ORDERED: METR-265 PO (07:30)
== END 2023-09-08 11:50 | disposition home or self-care (01) | DRG 710 ==
LOC: M ED 00:51 → M ED INP 05:26 → ENRESERV 08:04 → M ICU 08:38
PROVIDERS: ADMIT Internal Medicine; ATTEND General Practice
PROC: B246ZZZ Ultrasonography of Right and Left Heart (ICD-10-PCS; 2023-09-05)
PROC: 02HV33Z Insertion of Infusion Device into Superior Vena Cava, Percutaneous Approach (ICD-10-PCS; 2023-09-05)
PROC: 0F9430Z Drainage of Gallbladder with Drainage Device, Percutaneous Approach (ICD-10-PCS; principal; 2023-09-05 15:00)
DX: A41.59 Other Gram-negative sepsis (principal); R65.21 Severe sepsis with septic shock; J96.01 Acute respiratory failure with hypoxia; N17.9 Acute kidney failure, unspecified; E87.20 Acidosis, unspecified; G92.8 Other toxic encephalopathy; D69.59 Other secondary thrombocytopenia; K80.00 Calculus of gallbladder with acute cholecystitis without obstruction; R74.01 Elevation of levels of liver transaminase levels; E87.70 Fluid overload, unspecified; F17.220 Nicotine dependence, chewing tobacco, uncomplicated; K76.0 Fatty (change of) liver, not elsewhere classified; I10 Essential (primary) hypertension; G47.33 Obstructive sleep apnea (adult) (pediatric); Z90.49 Acquired absence of other specified parts of digestive tract; Z79.899 Other long term (current) drug therapy

== ENCOUNTER → 2023-10-04 | Outpatient (REF) | payer BC, OTHER ==
[~2023-10-04] MED LIST changes: +BACI1CAP PO; +LEVO1TAB40 PO; +MULT-6 PO; +PERC5TAB12 PO
== END ==
LOC: M SFHCPLAZ 13:16
PROVIDERS: ATTEND Internal Medicine Infectious Disease
DX: R19.7 Diarrhea, unspecified (principal)

== ENCOUNTER → 2023-10-08 | Outpatient (CLI) | payer BC, OTHER ==
[2023-10-08 13:29] LABS: BASO # 0.1 10^3/uL (0.0-0.2); EOS # 0.2 10^3/uL (0.0-0.5); EOS % 2.7 % (0.0-3.0); HEMATOCRIT 46.4 % (42.0-52.0); HEMOGLOBIN 15.2 g/dl (13.5-17.5); LYMPH # 1.8 10^3/uL (1.5-5.0); LYMPH % 24.8 % (24.0-44.0); MEAN CORPUSCULAR HEMOGLOBIN 30.3 pg (27.0-33.0); MEAN CORPUSCULAR HGB CONC 32.8 g/dl (32.0-36.5); MEAN CORPUSCULAR VOLUME 92.4 fl (80.0-96.0); MONO # 0.6 10^3/uL (0.0-0.8); MONO % 8.7 % (2.0-8.0); NEUTROPHILS # 4.5 10^3/uL (1.5-8.5); NEUTROPHILS % 62.2 % (36.0-66.0); PLATELET COUNT, AUTOMATED 175 10^3/uL (150-450); RED BLOOD COUNT 5.02 10^6/uL (4.30-6.10); WHITE BLOOD COUNT 7.1 10^3/uL (4.0-10.0)
[2023-10-08 14:04] LABS: ALKALINE PHOSPHATASE 80 U/L (46-116); ALT/SGPT 46 U/L (7.0-40); AST/SGOT 25 U/L (<34); BILIRUBIN,TOTAL 0.5 MG/DL (0.3-1.2); BLOOD UREA NITROGEN 15 MG/DL (9-23); CALCIUM LEVEL 9.6 MG/DL (8.5-10.1); CARBON DIOXIDE LEVEL 30 MMOL/L (20-31); CHLORIDE LEVEL 100 MMOL/L (98-107); CREATININE FOR GFR 0.97 MG/DL (0.70-1.30); GLOMERULAR FILTRATION RATE > 60.0 (>56); GLUCOSE, FASTING 74 MG/DL (60-100); POTASSIUM SERUM 4.1 MMOL/L (3.5-5.1); SODIUM LEVEL 136 MMOL/L (136-145); TOTAL PROTEIN 6.7 G/DL (5.7-8.2)
== END ==
LOC: M PLALAB 09:52
PROVIDERS: ATTEND Family Medicine
DX: Z01.818 Encounter for other preprocedural examination (principal); Z79.899 Other long term (current) drug therapy

== ENCOUNTER 2023-11-01 06:46 | Day surgery (SDC) | payer BC, OTHER ==
[~2023-11-01] VITALS: Ht 182.9 cm; Wt 109.3 kg
[2023-11-01] MEDS: LR 1,000 ML IV SCH (07:25)
[2023-11-01] MEDS ORDERED: KETOROLAC 60MG 2ML VIAL As Ordered ONE (08:15)
[2023-11-01] MEDS ORDERED: SUGAMMADEX SODIUM 500 MG/5 ML VIAL (BRIDION) As Ordered ONE (08:15)
[2023-11-01] MEDS ORDERED: LIDOCAINE 2% 100MG/5ML SDV (FOR ANES.) As Ordered ONE (08:15)
[2023-11-01] MEDS ORDERED: fentaNYL 250 MCG/5 ML INJECTION As Ordered ONE (08:15)
[2023-11-01] MEDS ORDERED: ePHEDrine SULFATE 25 MG/5 ML(5MG/ML) SYRINGE As Ordered ONE (08:15)
[2023-11-01] MEDS ORDERED: INDOCYANINE GREEN 25MG VIAL (IC-GREEN) As Ordered ONE (08:15)
[2023-11-01] MEDS ORDERED: ACETAMINOPHEN 1000MG 100ML IV BAG As Ordered ONE (08:15)
[2023-11-01] MEDS ORDERED: MIDAZOLAM INJ 2MG/2ML VIAL As Ordered ONE (08:15)
[2023-11-01] MEDS ORDERED: PHENYLephrine 500MCG 5ML (100MCG/ML) SYRINGE As Ordered ONE (08:15)
[2023-11-01] MEDS ORDERED: propofoL 200 MG/20 ML VIAL As Ordered ONE (08:15)
[2023-11-01] MEDS ORDERED: ONDANSETRON 4MG 2ML VIAL As Ordered ONE (08:15)
[2023-11-01] MEDS ORDERED: ROCURONIUM BROMIDE 50MG/5ML VIAL As Ordered ONE (08:15)
[2023-11-01] MEDS ORDERED: fentaNYL 100 MCG/2 ML INJECTION As Ordered ONE (08:56)
[2023-11-01] MEDS ORDERED: oxyCODONE 5MG TAB PO PRN (09:30)
[2023-11-01] MEDS ORDERED: fentaNYL 100 MCG/2 ML INJECTION IV PRN (09:30)
[2023-11-01] MEDS ORDERED: ONDANSETRON 4MG 2ML VIAL IV PRN (09:30)
[2023-11-01] MEDS ORDERED: LR 1,000 ML IV SCH (09:30)
[2023-11-01] MEDS ORDERED: NORCO, ANEXSIA 5/325MG TABLET (HYDROcodone/ACETAMINOPHEN) PO PRN (10:30)
[2023-11-01 11:28] VITALS: BP 136/75; TEMP 97.6; O2SAT 99
== END 2023-11-01 11:38 | disposition home or self-care (01) ==
LOC: M SDC 06:46
PROVIDERS: ATTEND Surgery
DX: K80.10 Calculus of gallbladder with chronic cholecystitis without obstruction (principal); I10 Essential (primary) hypertension; G47.30 Sleep apnea, unspecified; Z79.899 Other long term (current) drug therapy; Z90.49 Acquired absence of other specified parts of digestive tract; F17.220 Nicotine dependence, chewing tobacco, uncomplicated
CPT/HCPCS: 47562; 88304; J0131; J0665; J1100; J1885; J2250; J2371; J2405; J3010; Q9968; S2900

== ENCOUNTER → 2024-08-13 | Outpatient (CLI) | payer BC ==
[~2024-08-13] MED LIST changes: +ONDA-282 PO; -ONDA4TAB6 PO
[2024-08-13 10:56] LABS: BASO # 0.1 10^3/uL (0.0-0.2); BASO % 1.1 % (0.0-1.0); EOS # 0.2 10^3/uL (0.0-0.5); EOS % 3.3 % (0.0-3.0); HEMATOCRIT 48.6 % (42.0-52.0); HEMOGLOBIN 16.1 g/dl (13.5-17.5); LYMPH # 1.8 10^3/uL (1.5-5.0); MEAN CORPUSCULAR HEMOGLOBIN 30.3 pg (27.0-33.0); MEAN CORPUSCULAR HGB CONC 33.1 g/dl (32.0-36.5); MEAN CORPUSCULAR VOLUME 91.4 fl (80.0-96.0); MONO # 0.5 10^3/uL (0.0-0.8); MONO % 9.5 % (2.0-8.0); NEUTROPHILS # 3.1 10^3/uL (1.5-8.5); NEUTROPHILS % 54.6 % (36.0-66.0); PLATELET COUNT, AUTOMATED 170 10^3/uL (150-450); RED BLOOD COUNT 5.32 10^6/uL (4.30-6.10); WHITE BLOOD COUNT 5.7 10^3/uL (4.0-10.0)
[2024-08-13 17:41] LABS: ALBUMIN 4.1 G/DL (3.2-5.2); ALKALINE PHOSPHATASE 78 U/L (46-116); ALT/SGPT 61 U/L (7.0-40); AST/SGOT 28 U/L (<34); BILIRUBIN,TOTAL 0.6 MG/DL (0.3-1.2); BLOOD UREA NITROGEN 16 MG/DL (9-23); CALCIUM LEVEL 9.8 MG/DL (8.5-10.1); CARBON DIOXIDE LEVEL 26 MMOL/L (20-31); CHLORIDE LEVEL 106 MMOL/L (98-107); CHOLESTEROL LEVEL 161 MG/DL (<200); CHOLESTEROL RISK RATIO 3.64 (<5); CREATININE FOR GFR 1.17 MG/DL (0.70-1.30); GLOMERULAR FILTRATION RATE > 60.0 (>56); GLUCOSE, FASTING 106 MG/DL (60-100); HDL CHOLESTEROL 44.2 MG/DL (>40); LDL CHOLESTEROL 89.6 MG/DL (<100); NON-HDL-C 116.8 MG/DL; POTASSIUM SERUM 4.4 MMOL/L (3.5-5.1); PROSTATIC SPECIFIC AG MONITOR 0.42 NG/ML (< 4.00); SODIUM LEVEL 139 MMOL/L (136-145); TOTAL PROTEIN 7.1 G/DL (5.7-8.2); TRIGLYCERIDES LEVEL 136 MG/DL (<150)
== END ==
LOC: M PLALAB 08:24
PROVIDERS: ATTEND Family Medicine
DX: Z00.00 Encounter for general adult medical examination without abnormal findings (principal); Z12.5 Encounter for screening for malignant neoplasm of prostate

== ENCOUNTER → 2025-08-05 | Outpatient (CLI) | payer BC, OTHER ==
[2025-08-05 11:10] LABS: BASO # 0.0 10^3/uL (0.0-0.2); BASO % 0.6 % (0.0-1.0); EOS # 0.2 10^3/uL (0.0-0.5); EOS % 2.5 % (0.0-3.0); LYMPH # 1.8 10^3/uL (1.5-5.0); LYMPH % 27.5 % (24.0-44.0); MONO # 0.6 10^3/uL (0.0-0.8); MONO % 8.5 % (2.0-8.0); NEUTROPHILS # 3.9 10^3/uL (1.5-8.5); NEUTROPHILS % 60.0 % (36.0-66.0); PLATELET COUNT, AUTOMATED 173 10^3/uL (150-450)
[2025-08-05 11:33] LABS: PSA SCREENING 0.53 NG/ML (< 4.00)
[2025-08-05 11:37] LABS: ALT/SGPT 65.0 U/L (7.0-40); AST/SGOT 33.0 U/L (<34); CALCIUM LEVEL 9.7 MG/DL (8.3-10.6); CARBON DIOXIDE LEVEL 29.0 MMOL/L (20-31); CHLORIDE LEVEL 104.0 MMOL/L (98-107); CHOLESTEROL LEVEL 164.0 MG/DL (<200); CHOLESTEROL RISK RATIO 3.91 (<5); CREATININE FOR GFR 1.08 MG/DL (0.70-1.30); GLOMERULAR FILTRATION RATE 78.6 (>49); LDL CHOLESTEROL 91.9 MG/DL (<100); NON-HDL-C 122.1 MG/DL; POTASSIUM SERUM 4.8 MMOL/L (3.5-5.1); SODIUM LEVEL 143.0 MMOL/L (136-145); TRIGLYCERIDES LEVEL 151.0 MG/DL (<150)
== END ==
LOC: M PLALAB 09:19
PROVIDERS: ATTEND Family Medicine
DX: Z00.00 Encounter for general adult medical examination without abnormal findings (principal); Z12.5 Encounter for screening for malignant neoplasm of prostate
CPT/HCPCS: 36415; 80053; 80061; 85025; G0103